=== PATIENT | male | born 1925 | race Caucasian/White ===

== ENCOUNTER 2017-06-28 11:01 | Observation (INO) | payer OTHER ==
[~2017-06-28] VITALS: Ht 175.3 cm; Wt 74.2 kg
[2017-06-28 11:46] LABS: HEMATOCRIT 39.5 % (38.0-50.0); MCHC 33.4 G/DL (30.0-36.0); MCV 89.8 FL (86-99); MEAN PLAT.VOLUME 10.1 uM^3 (9.0-12.4); PLATELET COUNT 196 K/uL (156-360); RBC DIS.WIDTH-CV 12.7 % (11.8-14.6)
[2017-06-28 11:52] LABS: PROTHROMBIN TIME 10.8 SEC (10.2-12.9)
[2017-06-28 11:55] LABS: PTT 28.9 SEC (25-37)
[2017-06-28 11:58] LABS: CHLORIDE 104 mEq/L (99-109); POTASSIUM 4.2 mEq/L (3.7-5.4); SODIUM 136 mEq/L (136-147)
[2017-06-28 11:59] LABS: GLUCOSE 114 mg/dL (70-99)
[2017-06-28 12:01] LABS: ANION GAP 9 MEQ/L (2-14)
[2017-06-28] MEDS ORDERED: MIRALAX17 GM PO (12:01)
[2017-06-28] MEDS ORDERED: VITAMIN D31000 UNIT PO (12:02)
[2017-06-28] MEDS ORDERED: CULTURELLE CAP1 EACH PO (12:02)
[2017-06-28] MEDS ORDERED: ADVIL,NUPRIN,M200 MG PO (12:02)
[2017-06-28 12:03] LABS: GFR ESTIMATE (CALCULATED) > 59 mL/min/
[2017-06-28 12:04] LABS: UREA NITROGEN (BUN) 18 mg/dL (9-23)
[2017-06-28 12:07] LABS: TROP-I INTERPRETATION NEGATIVE; TROPONIN-I < 0.01 ng/mL (0.0-0.30)
[2017-06-28 17:20] VITALS: BP 159/69
[2017-06-28 19:30] VITALS: BP 124/59
[2017-06-29 00:19] VITALS: BP 111/53
[2017-06-29 04:20] VITALS: BP 99/51
[2017-06-29 06:11] LABS: ANION GAP 6 MEQ/L (2-14); CHLORIDE 105 MEQ/L (99-109); GFR ESTIMATE (CALCULATED) > 59 mL/min/; GLUCOSE 94 mg/dL (70-99); POTASSIUM 3.9 MEQ/L (3.7-5.4); SAMPLE HEMOLYSIS CHECK 0; SAMPLE ICTERIC CHECK 0; SAMPLE LIPEMIA CHECK 0; SODIUM 136 MEQ/L (136-147); UREA NITROGEN (BUN) 18 mg/dL (9-23)
[2017-06-29 07:39] VITALS: BP 137/60
[2017-06-29 11:49] VITALS: BP 141/72
[2017-06-29 16:41] VITALS: BP 152/66
[2017-06-30] VITALS: BP 132/60
[2017-06-30 03:38] VITALS: BP 114/74
[2017-06-30 05:50] LABS: EOSINOPHIL (%) 2.2 % (0-5); EOSINOPHIL COUNT 0.2 K/uL (0-0.3); HEMATOCRIT 34.2 % (38.0-50.0); IMMATURE GRANULOCYTE (%) 0.3 % (0.0-0.7); INSTRUMENT ABS NEUTROPHIL CT 4.9 K/uL; LYMPHOCYTE COUNT 1.1 K/uL (1.0-2.8); MCH 30.3 PG (29.0-34.0); MCHC 33.3 G/DL (30.0-36.0); MEAN PLAT.VOLUME 10.6 uM^3 (9.0-12.4); MONOCYTE (%) 8.5 % (3-12); MONOCYTE COUNT 0.6 K/uL (0-0.8); NEUTROPHIL (%) 71.9 % (45-76); NEUTROPHIL COUNT 4.9 K/uL (1.8-6.4); PLATELET COUNT 178 K/uL (156-360); RED BLOOD COUNT 3.76 M/uL (4.00-5.50); WHITE BLOOD COUNT 6.7 K/uL (4.1-10.2)
[2017-06-30 05:58] LABS: ANION GAP 6 MEQ/L (2-14); CHLORIDE 109 MEQ/L (99-109); GFR ESTIMATE (CALCULATED) > 59 mL/min/; GLUCOSE 83 mg/dL (70-99); POTASSIUM 3.9 MEQ/L (3.7-5.4); SAMPLE HEMOLYSIS CHECK 0; SAMPLE ICTERIC CHECK 0; SAMPLE LIPEMIA CHECK 0; SODIUM 138 MEQ/L (136-147); UREA NITROGEN (BUN) 15 mg/dL (9-23)
[2017-06-30 07:30] VITALS: BP 154/71
[2017-06-30 07:31] VITALS: BP 132/60; BP 146/64
[2017-06-30 07:32] VITALS: BP 132/60
[2017-06-30] MEDS ORDERED: ADVIL,NUPRIN,M200 MG PO (12:12)
[2017-06-30] MEDS ORDERED: ANTIVERT25 MG PO (12:13)
[2017-06-30 12:41] VITALS: BP 152/66
[2017-06-30] MEDS ORDERED: PEPCID20 MG PO (14:52)
[2017-06-30] MEDS ORDERED: LOVENOX40 MG/0.4 SC (14:53)
[2017-06-30] MEDS ORDERED: REGLAN5 MG/ML IV (14:54)
== END 2017-06-30 13:54 ==
LOC: EME 11:01 → EDOF 14:04 → ENRESERV 14:09 → 5WEST 17:04 → ENPENDDIS 06-30 13:30 → 5WEST 06-30 13:54
PROVIDERS: Emergency Medicine; Internal Medicine
DX: R42 Dizziness and giddiness (principal); R26.9 Unspecified abnormalities of gait and mobility; R11.2 Nausea with vomiting, unspecified; M25.562 Pain in left knee; M25.561 Pain in right knee; M17.0 Bilateral primary osteoarthritis of knee; Z87.828 Personal history of other (healed) physical injury and trauma; R00.1 Bradycardia, unspecified; Z87.891 Personal history of nicotine dependence
CPT/HCPCS: 70450; 70551; 71010; 71020; 73560; 80048; 82607; 84484; 85025; 85027; 85610; 85730; 93005; 93880; 99281; 99285; G0378; G8978 GP CK; G8979 GP CI; J1650; J2060; J2405; J2765; J7030; S0028

== ENCOUNTER 2017-06-30 12:20 | Inpatient (IN) | payer OTHER ==
[~2017-06-30] VITALS: Ht 175.3 cm; Wt 87.6 kg
[~2017-06-30 12:20] MED LIST: ADVIL,NUPRIN,M200 MG PO; ANTIVERT25 MG PO; CULTURELLE CAP1 EACH PO; MIRALAX17 GM PO; VITAMIN D31000 UNIT PO
[2017-06-30 14:26] VITALS: BP 159/72
[2017-06-30] MEDS ORDERED: PEPCID20 MG PO (14:52)
[2017-06-30] MEDS ORDERED: LOVENOX40 MG/0.4 SC (14:53)
[2017-06-30] MEDS ORDERED: REGLAN5 MG/ML IV (14:54)
[2017-07-01] VITALS: BP 137/65
[2017-07-01 05:04] VITALS: BP 129/72
[2017-07-01 05:38] LABS: HEMATOCRIT 32.8 % (38.0-50.0); MCH 30.7 PG (29.0-34.0); MCHC 33.8 G/DL (30.0-36.0); MCV 90.9 FL (86-99); MEAN PLAT.VOLUME 10.3 uM^3 (9.0-12.4); PLATELET COUNT 158 K/uL (156-360); RBC DIS.WIDTH-SD 43.2 % (39-53); RED BLOOD COUNT 3.61 M/uL (4.00-5.50); WHITE BLOOD COUNT 5.7 K/uL (4.1-10.2)
[2017-07-01 06:22] LABS: ALKALINE PHOSPHATASE 55 IU/L (3-129); ANION GAP 7 MEQ/L (2-14); CHLORIDE 111 MEQ/L (99-109); GFR ESTIMATE (CALCULATED) > 59 mL/min/; GLUCOSE 84 mg/dL (70-99); POTASSIUM 3.9 MEQ/L (3.7-5.4); SAMPLE HEMOLYSIS CHECK 0; SAMPLE ICTERIC CHECK 0; SAMPLE LIPEMIA CHECK 0; SODIUM 141 MEQ/L (136-147); TOTAL BILIRUBIN 0.7 MG/DL (0.0-1.0); UREA NITROGEN (BUN) 16 mg/dL (9-23)
[2017-07-01 15:59] VITALS: BP 142/64
[2017-07-02 06:13] VITALS: BP 137/65
[2017-07-02 15:17] VITALS: BP 164/76
[2017-07-03 05:38] VITALS: BP 136/63
[2017-07-03 15:11] VITALS: BP 147/67
[2017-07-04 04:17] VITALS: BP 151/71
[2017-07-04 09:14] LABS: ALKALINE PHOSPHATASE 75 IU/L (3-129); ANION GAP 7 MEQ/L (2-14); CHLORIDE 103 MEQ/L (99-109); GFR ESTIMATE (CALCULATED) > 59 mL/min/; GLUCOSE 129 mg/dL (70-99); POTASSIUM 4.1 MEQ/L (3.7-5.4); SAMPLE HEMOLYSIS CHECK 0; SAMPLE ICTERIC CHECK 0; SAMPLE LIPEMIA CHECK 0; SODIUM 139 MEQ/L (136-147); TOTAL BILIRUBIN 0.8 MG/DL (0.0-1.0); UREA NITROGEN (BUN) 13 mg/dL (9-23)
[2017-07-04 09:28] LABS: HEMATOCRIT 39.2 % (38.0-50.0); MCH 29.6 PG (29.0-34.0); MCHC 32.7 G/DL (30.0-36.0); MCV 90.7 FL (86-99); MEAN PLAT.VOLUME 10.3 uM^3 (9.0-12.4); RBC DIS.WIDTH-CV 12.9 % (11.8-14.6); RBC DIS.WIDTH-SD 42.5 % (39-53); RED BLOOD COUNT 4.32 M/uL (4.00-5.50); WHITE BLOOD COUNT 6.7 K/uL (4.1-10.2)
[2017-07-04 09:34] LABS: PLATELET COUNT 206 K/uL (156-360)
[2017-07-04 16:12] VITALS: BP 138/63
[2017-07-05 04:25] VITALS: BP 143/68
[2017-07-05] MEDS ORDERED: CELECOXIB200 MG PO (12:29)
[2017-07-05] MEDS ORDERED: ANTIVERT25 MG PO (12:29)
== END 2017-07-05 14:00 | DRG 556 ==
LOC: 3WEST 12:20 → ENPENDDIS 07-05 → 3WEST 07-05 14:00
PROVIDERS: Physical Medicine & Rehabilitation Pain Medicine
PROC: F07M0ZZ Range of Motion and Joint Mobility Treatment of Musculoskeletal System - Whole Body (ICD-10-PCS; principal; 2017-06-30)
DX: R26.2 Difficulty in walking, not elsewhere classified (principal); R42 Dizziness and giddiness; D64.9 Anemia, unspecified; H91.90 Unspecified hearing loss, unspecified ear; R13.10 Dysphagia, unspecified; M16.11 Unilateral primary osteoarthritis, right hip; M17.11 Unilateral primary osteoarthritis, right knee; M17.12 Unilateral primary osteoarthritis, left knee; Z83.3 Family history of diabetes mellitus
CPT/HCPCS: 80053; 85027; 97110 GO; 97530 GP; J1650